=== PATIENT | female | born 1990 ===

== ENCOUNTER 2017-09-14 15:09 | Emergency (ER) | payer MEDICAID ==
[2017-09-14 15:26] VITALS: PULSE 73; TEMP 98.6
[2017-09-14 16:01] LABS: RBC URINE 399 /hpf (0-3); URINE BILIRUBIN NEGATIVE (NEGATIVE); URINE BLOOD 3+ (NEGATIVE); URINE COLOR Yellow (YELLOW); URINE GLUCOSE (UA) NORMAL (Normal); URINE KETONE NEGATIVE (NEGATIVE); URINE LEUKOCYTE ESTERASE NEG Leu/uL (Negative); URINE PROTEIN 1+ mg/dL (NEGATIVE); URINE UROBILINOGEN NORMAL mg/dL (0.2-1.0); WBC URINE 1 /hpf (0-5)
[2017-09-14] MEDS ORDERED: Sodium Chloride 0.9% 1,000 ML IV ONE (16:48)
[2017-09-14] MEDS ORDERED: Sodium Chloride 0.9% 1,000 ML ONE (17:05)
[2017-09-14 17:14] LABS: BASO # 0.1 K/uL (0.0-0.2); BASO % 0.5 % (0.0-2.0); EOS # 0.1 K/uL (0.0-0.7); EOS % 0.5 % (0.0-4.0); HEMATOCRIT 44.4 % (34.0-47.0); LYMPH % 19.2 % (20.0-40.0); MEAN CELL VOLUME 84.5 fL (81.0-99.0); MEAN CORPUSCULAR HEMOGLOBIN 27.6 pg (27.0-31.0); MEAN CORPUSCULAR HGB CONC 32.7 g/dL (33.0-37.0); MEAN PLATELET VOLUME 8.1 fL (7.2-11.7); MONO # 1.2 K/uL (0.0-0.8); MONO % 7.9 % (0.0-10.0); RED CELL DISTRIBUTION WIDTH 13.7 % (11.5-14.5); WHITE BLOOD COUNT 15.8 K/uL (4.8-10.8)
[2017-09-14 17:26] LABS: ALKALINE PHOSPHATASE 99 U/L (38-126); ALT/SGPT 49 U/L (9-52); AST/SGOT 41 U/L (14-36); BILIRUBIN,TOTAL 0.7 mg/dL (0.2-1.3); BLOOD UREA NITROGEN 13 mg/dL (7-17); CALCIUM 9.4 mg/dl (8.6-10.4); CARBON DIOXIDE 25 mmol/L (22-30); CHLORIDE 107 mmol/L (98-107); GFR AFRICAN-AMERICAN > 60; GLUCOSE,RANDOM 93 mg/dL (65-105); POTASSIUM 3.7 mmol/L (3.6-5.2); SODIUM 140 mmol/L (132-148); TOTAL PROTEIN 9.2 g/dL (6.3-8.3)
[2017-09-14 17:29] LABS: ALB/GLOB RATIO 0.9 (1.0-2.1)
--- NOTE | 2017-09-14 18:02 | CT ---
PROCEDURE: CT Abdomen and Pelvis without intravenous or oral contrast HISTORY: abd pain r/o stone COMPARISON: None. TECHNIQUE: Technique Contiguous axial images of the abdomen and pelvis without intravenous or oral contrast. Radiation dose: Total exam DLP = 1151.42 mGy-cm. This CT exam was performed using one or more of the following dose reduction techniques: Automated exposure control, adjustment of the mA and/or kV according to patient size, and/or use of iterative reconstruction technique. FINDINGS: LOWER THORAX: Unremarkable. LIVER: Hepatic steatosis. No focal masses. No intrahepatic bile duct dilatation or perihepatic ascites. GALLBLADDER AND BILE DUCTS: Unremarkable. PANCREAS: Unremarkable. No ductal dilatation. SPLEEN: Unremarkable. No splenomegaly. ADRENALS: Unremarkable. KIDNEYS AND URETERS: Right kidney and collecting system: Proximal right ureteral calculus 5.2 mm. This is within 2 cm of the right ureteral pelvic junction. Moderate obstruction of the right collecting system without identifiable urinoma. No upper tract calculi identified on the right. Left kidney, ureter and collecting system: Unremarkable. BLADDER: Unremarkable. No calculus. REPRODUCTIVE: Unremarkable. APPENDIX: Unremarkable. Normal appendix. STOMACH AND BOWEL: Unremarkable. No obstruction. No gross mural thickening. PERITONEUM: Unremarkable. No significant fluid collection. No free air. LYMPH NODES: Unremarkable. No enlarged lymph nodes. VASCULATURE: Unremarkable. No aortic aneurysm. BONES: No acute fracture. OTHER FINDINGS: None . IMPRESSION: Proximal right ureteral calculus 5 mm. Moderate right hydronephrosis. No upper tract calculi otherwise identified. Remainder of the ureters and urinary bladder are within normal limits. Additional benign and/or incidental findings described above.
--- NOTE | 2017-09-14 18:07 | C.PDOC ---
History Of Present Illness 27 yr old female presents to the ER with complaints of abdominal pain and right flank pain for the past 3 days. Patient states the pain radiates from back to front and is associated with nausea. Patient reports of irregular menstrual cycle, LMP was 3 months ago. Patient denies fever, nausea, vomiting, diarrhea, dysuria, vaginal discharge, vaginal bleeding, weakness or numbness. Time Seen by Provider: 09/14/17 16:41 Chief Complaint (Nursing): Abdominal Pain History Per: Patient History/Exam Limitations: no limitations Onset/Duration Of Symptoms: Days (3) Past Medical History Reviewed: Historical Data, Nursing Documentation, Vital Signs Vital Signs: Last Vital Signs Temp 98.6 F 09/14/17 15:24 Pulse 73 09/14/17 18:09 Resp 18 09/14/17 18:09 BP 123/76 09/14/17 18:09 Pulse Ox 97 09/14/17 18:27 Family History: States: No Known Family Hx - Social History Hx Alcohol Use: No Hx Substance Use: Yes - Immunization History Hx Tetanus Toxoid Vaccination: No Hx Influenza Vaccination: No Hx Pneumococcal Vaccination: No Review Of Systems Except As Marked, All Systems Reviewed And Found Negative. Constitutional: Negative for: Fever Gastrointestinal: Positive for: Abdominal Pain. Negative for: Nausea, Vomiting , Diarrhea Genitourinary: Negative for: Vaginal Discharge, Vaginal Bleeding Musculoskeletal: Positive for: Back Pain (Right flank pain) Neurological: Negative for: Weakness, Numbness Physical Exam - Physical Exam Appears: Non-toxic, No Acute Distress Skin: Warm, Dry, No Rash Head: Atraumatic, Normacephalic Oral Mucosa: Moist Cardiovascular: Rhythm Regular, No Murmur Respiratory: Normal Breath Sounds, No Rales, No Rhonchi, No Stridor, No Wheezing Gastrointestinal/Abdominal: Soft, Tenderness (Tenderness to the right lateral midaxillary line), No Guarding, No Rebound Extremity: Normal ROM, No Swelling Neurological/Psych: Oriented x3, Normal Speech, Normal Motor ED Course And Treatment - Laboratory Results Result Diagrams: 09/14/17 17:03 09/14/17 17:03 O2 Sat by Pulse Oximetry: 97 (RA) Pulse Ox Interpretation: Normal Medical Decision Making Medical Decision Making: IMPRESSION: Abdominal/Right flank pain PLAN: * CT - Abd & Pelvis * CBC * CMP * Urinalysis * Toradol IVP * Zofran IVP * Sodium Chloride IV NOTE: * On reeval, patient reports improvement of symptoms. * Patient has a kidney stone and to follow up with Dr. Baldev Kumar in 1-2 days. Medication for the next 2 days is given. Disposition - Disposition Referrals: Sander Ruiz MD [Staff Provider] - Disposition: HOME/ ROUTINE Disposition Time: 18:22 Condition: IMPROVED Additional Instructions: follow up with urology in 2 days call to make an appointment take medications as needed for pain return to hospital if symptoms worsens or progress Prescriptions: Acetaminophen/Codeine [Tylenol/Codeine 300 MG/30 MG] 1 tab PO Q6H PRN #12 tab PRN Reason: Pain, Severe (8-10) Naproxen [Naprosyn] 500 mg PO BID PRN #16 tab PRN Reason: Pain, Moderate (4-7) Ondansetron ODT [Zofran ODT] 4 mg PO TID PRN #12 odt PRN Reason: Nausea/Vomiting Tamsulosin HCl [Flomax] 0.4 mg PO DAILY #7 cap.er.24h Instructions: Renal Colic (ED) Forms: General Discharge Instructions, [facility] (Czech), Work Excuse - Clinical Impression Clinical Impression: Kidney stone - Scribe Statement The provider has reviewed the documentation as recorded by the Lindaibrao Gallagher Provider Attestation: All medical record entries made by the Lindaibrao were at my direction and personally dictated by me. I have reviewed the chart and agree that the record accurately reflects my personal performance of the history, physical exam, medical decision making, and the department course for this patient. I have also personally directed, reviewed, and agree with the discharge instructions and disposition.
[2017-09-14 18:09] VITALS: BP 123/76; RESP 18
[2017-09-14 18:15] VITALS: O2SAT 97
== END 2017-09-14 18:59 | disposition home or self-care (01) ==
LOC: C.ER 15:09
DX: N20.0 Calculus of kidney (principal)
CPT/HCPCS: 74176; 80053; 81001; 83690; 84703; 85025; 96361; 96374; 96375; 99284; J1885; J2405; J7040